=== PATIENT | female | born 1985 | race African-American/Black ===

== ENCOUNTER 2020-03-23 22:07 | Emergency (ER) | payer MEDICAID ==
[~2020-03-23] VITALS: Ht 157.5 cm; Wt 54.4 kg
[2020-03-23 22:23] VITALS: BP 116/73
--- NOTE | 2020-03-23 22:25 | NUR ---
URINE COLLECTED AND SENT TO LAB
--- NOTE | 2020-03-23 22:25 | NUR ---
PT DENIES ANY UNUSUAL VAGINAL DISCHARGE. GOT RECENTLY TESTED FOR HIV @ [facility]. RESULTS WERE NEGATIVE
--- NOTE | 2020-03-23 22:25 | NUR ---
PT CAME TO THE ED REQUESTING FOR STD TESTING AFTER HAVING UNPROTECTED SEXUAL INTERCOURSE LAST WEEK. PT NOT IN RESPIRATORY DISTRESS. VSS. AWAITING FOR MD SURESH
[2020-03-23 23:03] LABS: APPEARANCE,URINE Clear (CLEAR); BILIRUBIN,URINE Negative (NEGATIVE); BLOOD, URINE Negative Ery/uL (NEGATIVE); COLOR,URINE Yellow (YELLOW); KETONES,URINE Negative (NEGATIVE); LEUKOCYTE ESTERASE ,URINE Negative (NEGATIVE); NITRITE, URINE Negative (NEGATIVE); PH,URINE 5.5 (5.0-8.0); PROTEIN,URINE Negative (NEGATIVE); UGLUCOSE Negative (NEGATIVE); UROBILINOGEN,URINE 0.2 EU/dL (0.2)
== END 2020-03-23 23:37 | disposition home or self-care (01) ==
LOC: ER 22:12
DX: Z20.2 Contact with and (suspected) exposure to infections with a predominantly sexual mode of transmission (principal)
CPT/HCPCS: 81000-TC; 84703-TC; 87491; 87591